=== PATIENT | female | born 1990 | race Caucasian/White ===

== ENCOUNTER 2016-09-26 15:55 | Emergency (ER) | payer OTHER ==
[~2016-09-26] VITALS: Ht 160 cm; Wt 52.3 kg
[2016-09-26 15:57] VITALS: TEMP 98
[2016-09-26] MEDS ORDERED: ORTHO TRI-CYCLE1 TAB PO (16:01)
[2016-09-26 17:18] LABS: BASO # 0.1 (0.0-0.2); BASO % 0.5 % (0.0-2.0); EOS # 0.1 (0.0-0.7); EOS % 1.1 % (0-4.0); GRAN # 6.4 (1.4-6.5); GRAN % 69.4 % (42.2-75.2); HEMATOCRIT 37.2 % (37.0-47.0); HEMOGLOBIN 12.9 g/dl (12.5-16.0); MEAN CELL VOLUME 88 fl (80.0-100.0); MEAN CORPUSCULAR HEMOGLOBIN 31 pg (27.0-31.0); MEAN CORPUSCULAR HGB CONC 35 g/dl (33.0-37.0); MEAN PLATELET VOLUME 10.2 fl (7.4-10.4); MONO # 0.6 (0.1-0.6); MONO % 6.7 % (1.7-9.3); PLATELET COUNT 256 K/mm3 (130-400); RED BLOOD COUNT 4.23 M/mm3 (4.10-5.30); REDCELL DISTRIBUTION WIDTH-CV 12.2 % (11.5-14.5); WHITE BLOOD COUNT 9.3 K/mm3 (4.8-10.8)
[2016-09-26 17:30] LABS: ADJUSTED CALCIUM 8.9 mg/dL (8.4-10.2); ALBUMIN 4.3 gm/dL (3.5-5.0); BILIRUBIN,TOTAL 0.8 mg/dL (0.0-1.0); CALCIUM 9.1 mg/dL (8.4-10.2); CREATININE, serum 0.77 mg/dL (0.52-1.25); POTASSIUM 3.7 mmol/L (3.4-5.0); TOTAL PROTEIN 7.6 gm/dL (6.4-8.2)
[2016-09-26 17:46] LABS: PROLACTIN 18.9 ng/mL (3.0-18.6)
[2016-09-26 19:01] VITALS: BP 100/70; PULSE 67
== END 2016-09-26 19:04 | disposition home or self-care (01) ==
LOC: COL.ER 15:55
PROVIDERS: Emergency Medicine
DX: G43.809 Other migraine, not intractable, without status migrainosus (principal)
CPT/HCPCS: J1200; J2550; J7030

== ENCOUNTER 2017-03-11 18:10 | Emergency (ER) | payer OTHER ==
[~2017-03-11] VITALS: Ht 160 cm; Wt 54.5 kg
[~2017-03-11 18:10] MED LIST: ORTHO TRI-CYCLE1 TAB PO
[2017-03-11 18:13] VITALS: BP 134/70; PULSE 78; TEMP 97.9
[2017-03-11] MEDS ORDERED: PRENATAL (18:19)
== END 2017-03-11 18:56 | disposition home or self-care (01) ==
LOC: COL.ER 18:10
DX: O99.352 Diseases of the nervous system complicating pregnancy, second trimester (principal); G43.909 Migraine, unspecified, not intractable, without status migrainosus; Z3A.19 19 weeks gestation of pregnancy